=== PATIENT | female | born 1980 | race Caucasian/White ===

== ENCOUNTER 2019-08-16 12:38 | Inpatient (IN) | payer BC ==
[2019-08-16] MEDS ORDERED: Carboprost Tromethamine 250 MCG/1 ML Amp IM PRN (12:50)
[2019-08-16] MEDS ORDERED: Sodium Chloride 0.9% 10 ML Syringe FLUSH PRN (12:50)
[2019-08-16] MEDS ORDERED: Sodium Chloride 0.9% 2.5 ML Syringe FLUSH PRN (12:50)
[2019-08-16] MEDS ORDERED: Sodium Chloride 0.9% 10 ML SDV IV PRN (12:50)
[2019-08-16] MEDS ORDERED: Terbutaline 1 MG/ML SDV SUBCUT PRN (12:50)
[2019-08-16] MEDS ORDERED: Lidocaine 1% 50 ML MDV INJECT PRN (12:50)
[2019-08-16] MEDS ORDERED: Methylergonovine 0.2 MG/1 ML Amp IM PRN (12:50)
[2019-08-16] MEDS ORDERED: Water For Irrigation,Sterile 1,000 ML Container IRR PRN (12:50)
[2019-08-16] MEDS ORDERED: Tranexamic Acid 1,000 MG in Sodium Chloride 0.9% 100 ML IV PRN (12:50)
[2019-08-16] MEDS ORDERED: Misoprostol 200 MCG Tab PO PRN (12:50)
[2019-08-16] MEDS ORDERED: Butorphanol 1 MG/ML SDV IVPUSH PRN (12:50)
[2019-08-16] MEDS ORDERED: Oxytocin/0.9 % Sodium Chloride 30 UNIT/500 ML BAG IV SCH ×2 (13:00)
[2019-08-16] MEDS ORDERED: Lactated Ringers 1,000 ML IV SCH (13:00)
[2019-08-16] MEDS ORDERED: Citric Acid/Sodium Citrate Solution 30 ML Cup ONE (18:40)
--- NOTE | 2019-08-16 19:08 | PCM.OPNOTE ---
- General Post-Op/Procedure Note Date of Surgery/Procedure: 08/16/19 Operative Procedure(s): /IP Findings: Viable female APGARs 8, 9 weight pending. Spontaneous delivery intact placenta with 3V cord. Pre Op Diagnosis: 38/3 week IUP. Gestational HTN. Gestational diabetes Post-Op Diagnosis: Same Primary Surgeon: Roslyn Ford EBL in mLs: 300 Complications: none known Condition: Good Free Text/Narrative:: Dictation [id number]
[2019-08-16] MEDS ORDERED: Acetaminophen 500 MG Tab PO PRN (19:09)
[2019-08-16] MEDS ORDERED: Benzocaine/Menthol 20%-0.5% Spray 78 GM Cannister TOP PRN (19:09)
[2019-08-16] MEDS ORDERED: Witch Hazel Medicated Pads 40/Jar TOP PRN (19:09)
[2019-08-16] MEDS ORDERED: Bisacodyl 10 MG Supp RECTAL PRN (19:09)
[2019-08-16] MEDS ORDERED: Lanolin 100% Cream 7 GM Tube TOP PRN (19:09)
[2019-08-16] MEDS ORDERED: Ondansetron 4 MG/2 ML SDV IVPUSH PRN (19:09)
[2019-08-16] MEDS ORDERED: Ibuprofen 400 MG Tab PO PRN (19:09)
[2019-08-16] MEDS ORDERED: Aluminum Hydroxide/Magnesium Hydroxide/Simethicone Susp 30 ML Cup PO PRN (19:09)
[2019-08-16] MEDS ORDERED: oxyCODONE 5 MG Tab PO PRN (19:09)
--- NOTE | 2019-08-16 19:51 | OR ---
SURGEON: Roslyn Ford M.D. DATE OF PROCEDURE: 08/16/2019 PREOPERATIVE DIAGNOSES: 1. A 38-3/7 weeks' intrauterine . 2. Gestational hypertension. 3. Gestational diabetes. POSTOPERATIVE DIAGNOSES: 1. A 38-3/7 weeks' intrauterine . 2. Gestational hypertension. 3. Gestational diabetes. PROCEDURE: Spontaneous vaginal delivery, intact perineum. PRIMARY SURGEON: Roslyn Ford MD ANESTHESIA: None. ESTIMATED BLOOD LOSS: 300 mL. COMPLICATIONS: None known. FINDINGS: Viable female. score of 8 at one minute, 9 at five minutes. Weight is pending. Spontaneous delivery, intact placenta, 3-vessel cord. DISPOSITION: to nursery, mom in LDRP. PROCEDURE DETAILS: The patient is a 38-year-old, G5, P 2-0-2-2, at 38-3/7 weeks' gestation who presented today for her routine OB visit, was noted to have elevated blood pressures from 140s over 90s to 120s over 90s. Given term gestation with gestational diabetes and now elevated blood pressures, it was felt best to proceed with induction. Cervix was stable at 3 to 4 cm, 70% effaced, minus 2 station. The patient admitted, routine labs were drawn. No protein in the urine. Blood pressures remained in the 130s over 80s, 130s over 90s. Therefore, was initiated on Pitocin. She is group B beta strep negative. She started becoming more uncomfortable, underwent amniotomy shortly before 5 p.m., clear fluid was returned. The patient began having more intense contractions thereafter. Shortly after 6 p.m., she was found to be 7 cm. heart tones were in the 120s with variability. Within the next 15 to 20 minutes, she progressed to 9 cm. I presented for delivery. Upon my arrival, the patient was found to be anterior lip, was prepped and draped in the usual aseptic manner. With the next contraction, I was able to reduce anterior lip. The patient with continued pushing efforts was able to deliver head to a +4 station. Delivered head followed by anterior shoulder, posterior shoulder, and remainder of the body without difficulty. The 's oropharynx and nares were bulb suctioned. The infant was handed off to her mother with the attending nursing staff at the side. After a delay, cord was clamped x2 and cut. Cord arterial, cord venous, cord blood sampling was obtained. Light pressure was applied while the placenta was delivered spontaneously intact. Vigorous fundal uterine massage was then applied while 30 units of Pitocin was delivered in 500 mL of IV fluid. Upon inspection of cervix, vaginal sidewalls, and perineum, these were found to be intact. The patient tolerated the procedure well. Sponge count and instrument count were correct. The patient remained in LDRP. We will continue to monitor her blood pressures closely. Infant to nursery. EMIGDIO / BRITTANY /[id number]
[2019-08-16] MEDS: Ibuprofen 800 MG Tab PO PRN (20:08)
[2019-08-16] MEDS: Acetaminophen 500 MG Tab PO PRN ×2 (20:09→23:06)
[2019-08-17] MEDS: Ibuprofen 800 MG Tab PO PRN (04:18)
--- NOTE | 2019-08-17 09:50 | PCM.PNPP ---
- General Info Date of Service: 08/17/19 Functional Status: Reports: Pain Controlled, Tolerating Diet, Ambulating, Urinating - Review of Systems General: Denies: Fever, Weakness, Fatigue Pulmonary: Denies: Shortness of Breath Cardiovascular: Denies: Chest Pain, Palpitations, Lightheadedness Gastrointestinal: Denies: Abdominal Pain, Nausea, Vomiting Genitourinary: Denies: Flank Pain Musculoskeletal: Reports: No Symptoms Skin: Reports: No Symptoms Neurological: Reports: No Symptoms Psychiatric: Reports: No Symptoms - General Info Date of Service: 08/17/19 - Patient Data Vital Signs - Most Recent: Last Vital Signs Temp 36.4 C 08/17/19 08:00 Pulse 71 08/17/19 08:00 Resp 16 08/17/19 08:00 BP 141/81 H 08/17/19 08:00 Pulse Ox 94 L 08/17/19 08:00 Weight - Most Recent: 93.44 kg Lab Results - Last 24 Hours: Laboratory Results - last 24 hr 08/16/19 08/16/19 08/16/19 Range/Units 13:20 13:36 14:00 WBC 6.17 (4.0-11.0) K/uL RBC 4.37 (4.30-5.90) M/uL Hgb 12.6 (12.0-16.0) g/dL Hct 38.3 (36.0-46.0) % MCV 87.6 (80.0-98.0) fL MCH 28.8 (27.0-32.0) pg MCHC 32.9 (31.0-37.0) g/dL RDW Std Deviation 46.3 (28.0-62.0) fl RDW Coeff of Rinku 14 (11.0-15.0) % Plt Count 251 (150-400) K/uL MPV 10.50 (7.40-12.00) fL Nucleated RBC % 0.0 /100WBC Nucleated RBCs # 0 K/uL Cord ABG pH (7.18-7.38) Cord ABG Base Excess (-10--2) Cord VBG pH (7.25-7.45) Cord VBG Base Excess (-10--2) POC Glucose 57 L (60-110) mg/dL Fasting Glucose (74-106) mg/dL Blood Type A POSITIVE Antibody Screen NEGATIVE 08/16/19 08/16/19 08/17/19 Range/Units 16:29 18:44 05:32 WBC (4.0-11.0) K/uL RBC (4.30-5.90) M/uL Hgb 11.1 L (12.0-16.0) g/dL Hct 33.7 L (36.0-46.0) % MCV (80.0-98.0) fL MCH (27.0-32.0) pg MCHC (31.0-37.0) g/dL RDW Std Deviation (28.0-62.0) fl RDW Coeff of Rinku (11.0-15.0) % Plt Count (150-400) K/uL MPV (7.40-12.00) fL Nucleated RBC % /100WBC Nucleated RBCs # K/uL Cord ABG pH 7.139 L (7.18-7.38) Cord ABG Base Excess -11 L (-10--2) Cord VBG pH 7.235 L (7.25-7.45) Cord VBG Base Excess -10 (-10--2) POC Glucose 98 (60-110) mg/dL Fasting Glucose (74-106) mg/dL Blood Type Antibody Screen 08/17/19 Range/Units 05:32 WBC (4.0-11.0) K/uL RBC (4.30-5.90) M/uL Hgb (12.0-16.0) g/dL Hct (36.0-46.0) % MCV (80.0-98.0) fL MCH (27.0-32.0) pg MCHC (31.0-37.0) g/dL RDW Std Deviation (28.0-62.0) fl RDW Coeff of Rinku (11.0-15.0) % Plt Count (150-400) K/uL MPV (7.40-12.00) fL Nucleated RBC % /100WBC Nucleated RBCs # K/uL Cord ABG pH (7.18-7.38) Cord ABG Base Excess (-10--2) Cord VBG pH (7.25-7.45) Cord VBG Base Excess (-10--2) POC Glucose (60-110) mg/dL Fasting Glucose 95 (74-106) mg/dL Blood Type Antibody Screen Med Orders - Current: Current Medications Acetaminophen (Tylenol Extra Strength) 500 mg PO Q4H PRN PRN Reason: Pain Acetaminophen (Tylenol Extra Strength) 1,000 mg PO Q4H PRN PRN Reason: Pain Last Admin: 08/16/19 23:06 Dose: 1,000 mg Al Hydroxide/Mg Hydroxide (Mag-Al Plus) 30 ml PO Q8H PRN PRN Reason: Heartburn Benzocaine/Menthol (Dermoplast Pain Relief 20%-0.5% [place]) 78 gm TOP ASDIRECTED PRN PRN Reason: Perineal Comfort Measure Bisacodyl (Dulcolax) 10 mg RECTAL ONETIME PRN PRN Reason: Constipation Carboprost Tromethamine (Hemabate Ds) 250 mcg IM ASDIRECTED PRN PRN Reason: Post Hemorrhage Docusate Sodium (Colace) 100 mg PO BID PRN PRN Reason: Constipation Emollient Ointment (Lansinoh Hpa) 0 gm TOP ASDIRECTED PRN PRN Reason: Sore Nipples Lactated Ringer's (Ringers, Lactated) 1,000 mls @ 150 mls/hr IV ASDIRECTED BERNABE Last Admin: 08/16/19 14:01 Dose: 150 mls/hr Oxytocin/Sodium Chloride (Oxytocin 30 Unit/500 Ml-Ns) 30 unit in 500 mls @ 999 mls/hr IV TITRATE BERNABE Oxytocin/Sodium Chloride (Oxytocin 30 Unit/500 Ml-Ns) 30 unit in 500 mls @ 2 mls/hr IV TITRATE BERNABE; Protocol Last Titration: 08/16/19 17:00 Dose: 14 munits/min, 14 mls/hr Tranexamic Acid 1,000 mg/ (Sodium Chloride) 110 mls @ 660 mls/hr IV ONETIME PRN PRN Reason: Bleeding Ibuprofen (Motrin) 400 mg PO Q4H PRN PRN Reason: Pain Ibuprofen (Motrin) 800 mg PO Q6H PRN PRN Reason: Pain Last Admin: 08/17/19 04:18 Dose: 800 mg Methylergonovine Maleate (Methergine) 0.2 mg IM ASDIRECTED PRN PRN Reason: Post Hemorrhage Misoprostol (Cytotec) 200 mcg PO ONETIME PRN PRN Reason: Post Hemorrhage Ondansetron HCl (Zofran) 4 mg IVPUSH Q6H PRN PRN Reason: Nausea/Vomiting Oxycodone HCl (Oxycodone) 5 mg PO Q2H PRN PRN Reason: Pain Sodium Chloride (Saline Flush) 10 ml FLUSH ASDIRECTED PRN PRN Reason: Keep Vein Open Sodium Chloride (Saline Flush) 2.5 ml FLUSH ASDIRECTED PRN PRN Reason: Keep Vein Open Sodium Chloride (Normal Saline) 10 ml IV ASDIRECTED PRN PRN Reason: IV Use Sterile Water (Sterile Water For Irrigation) 1,000 ml IRR ASDIRECTED PRN PRN Reason: delivery Last Admin: 08/16/19 19:05 Dose: 1,000 ml Witch Julita (Tucks) 1 pad TOP ASDIRECTED PRN PRN Reason: comfort care Discontinued Medications Butorphanol Tartrate (Stadol) 1 mg IVPUSH Q1H PRN PRN Reason: Pain Citric Acid/Sodium Citrate (Bicitra Solution) Confirm Administered Dose 30 ml .ROUTE .[employer] ONE Stop: 08/16/19 18:41 Last Admin: 08/17/19 09:27 Dose: Not Given Lidocaine HCl (Xylocaine 1%) 50 ml INJECT ONETIME PRN PRN Reason: Laceration repair Terbutaline Sulfate (Brethine) 0.25 mg SUBCUT ASDIRECTED PRN PRN Reason: Tacysystole - Infant Interaction Support Person: - Recovery Exam Fundal Tone: Firm Fundal Level: 1 Fingerbreadths Below Umbilicus Fundal Placement: Midline Lochia Amount: Scant Lochia Color: Rubra/Red Perineum Description: Intact, Minimal Bruising/Swelling Episiotomy/Laceration: None Bladder Status: Voiding - Exam General: Alert, Oriented Lungs: Normal Respiratory Effort Cardiovascular: Regular Rate, Regular Rhythm GI/Abdominal Exam: Normal Bowel Sounds, Soft Extremities: Pedal Edema (trace). No: Jd's Sign Skin: Warm, Dry, Intact Neurological: No New Focal Deficit Psy/Mental Status: Alert, Normal Affect, Normal Mood - Problem List & Annotations (1) Vaginal delivery SNOMED Code(s): 335297987 Code(s): O80 - ENCOUNTER FOR FULL-TERM UNCOMPLICATED DELIVERY Status: Acute Current Visit: Yes (2) Gestational hypertension SNOMED Code(s): 655694578 Code(s): O13.9 - GESTATIONAL HTN W/O SIGNIFICANT PROTEINURIA, UNSP TRIMESTER Status: Acute Current Visit: Yes - Problem List Review Problem List Initiated/Reviewed/Updated: Yes - My Orders Last 24 Hours: My Active Orders 08/16/19 12:50 Patient Status [ADT] Routine Communication Order [RC] ASDIRECTED Communication Order [RC] ASDIRECTED May Shower [RC] ASDIRECTED Notify Provider [RC] PRN Notify Provider [RC] PRN Notify Provider [RC] STAT Oxygen Therapy [RC] ASDIRECTED Up ad Fabi [RC] ASDIRECTED Vital Signs [RC] PER UNIT ROUTINE Carboprost Tromethamine [Hemabate DS] 250 mcg IM ASDIRECTED PRN Methylergonovine [Methergine] 0.2 mg IM ASDIRECTED PRN Sodium Chloride 0.9% [Normal Saline] 10 ml IV ASDIRECTED PRN Sodium Chloride 0.9% [Saline Flush] 10 ml FLUSH ASDIRECTED PRN Sodium Chloride 0.9% [Saline Flush] 2.5 ml FLUSH ASDIRECTED PRN Tranexamic Acid [Cyklokapron] 1,000 mg Sodium Chloride 0.9% [Normal Saline] 100 ml IV ONETIME Water For Irrigation,Sterile [Sterile Water for Irrigation] 1,000 ml IRR ASDIRECTED PRN miSOPROStoL [Cytotec] 200 mcg PO ONETIME PRN Peripheral IV Insertion Adult [OM.PC] Routine Resuscitation Status Routine 08/16/19 13:00 Lactated Ringers [Ringers, Lactated] 1,000 ml IV ASDIRECTED Oxytocin/0.9 % Sodium Chloride [Oxytocin 30 Unit/500 ML-NS] 30 unit in 500 ml IV TITRATE Oxytocin/0.9 % Sodium Chloride [Oxytocin 30 Unit/500 ML-NS] 30 unit in 500 ml IV TITRATE Medication Administration Instruction [OM.PC] Q3H 08/16/19 13:20 RPR (SYPHILIS SERO) W/ RFLX [REF] Routine 08/16/19 19:09 Patient Status [ADT] Routine May Shower [RC] ASDIRECTED Notify Provider Vital Signs [RC] ASDIRECTED Up ad Fabi [RC] ASDIRECTED Vital Signs [RC] PER UNIT ROUTINE Acetaminophen [Tylenol Extra Strength] 1,000 mg PO Q4H PRN Acetaminophen [Tylenol Extra Strength] 500 mg PO Q4H PRN Alum Hydrox/Mag Hydrox/Simeth [Mag-Al Plus] 30 ml PO Q8H PRN Benzocaine/Menthol [Dermoplast Pain Relief 20%-0.5% [place]] 78 gm TOP ASDIRECTED PRN Docusate Sodium [Colace] 100 mg PO BID PRN Ibuprofen [Motrin] 400 mg PO Q4H PRN Ibuprofen [Motrin] 800 mg PO Q6H PRN Lanolin [Lansinoh HPA] See Dose Instructions TOP ASDIRECTED PRN Ondansetron [Zofran] 4 mg IVPUSH Q6H PRN bisacodyL [Dulcolax] 10 mg RECTAL ONETIME PRN oxyCODONE 5 mg PO Q2H PRN witch Julita [Tucks] 1 pad TOP ASDIRECTED PRN Assess Lochia [WOMSER] Per Unit Routine Assess Uterine Involution [WOMSER] Per Unit Routine Peripheral IV Discontinue [OM.PC] Routine 08/16/19 19:10 Ice Therapy [OM.PC] Per Unit Routine Perineal Care [OM.PC] Per Unit Routine Sitz Bath [OM.PC] Per Unit Routine 08/16/19 Dinner Regular Diet [DIET] - Assessment Assessment:: PPD 1 status post /IP Gestational hypertension Gestational diabetes-diet controlled, normal fasting glucose - Plan Plan:: Patient is doing well overall--denies headaches or visual changes. However, blood pressures are still ranging 140-150/80-90s. Will monitor into this afternoon and if stay in this range, will start antihypertensive. Plan to monitor until tomorrow given elevated BPs. Advised her to have supervisor opening and picking a blood pressure cuff for home. Reassured fasting glucose, but will need 75 gm GTT at PP visit. Otherwise, continue PP cares. Patient voices understanding to plan of care.
[2019-08-17] MEDS: Acetaminophen 500 MG Tab PO PRN (11:50)
[2019-08-17] MEDS: Labetalol 100 MG Tab PO SCH ×2 (13:01→21:14)
[2019-08-17] MEDS: Docusate Sodium 100 MG Cap PO PRN (21:13)
[2019-08-18] MEDS: Ibuprofen 800 MG Tab PO PRN ×2 (00:25→07:58)
[2019-08-18] MEDS: Docusate Sodium 100 MG Cap PO PRN (07:58)
[2019-08-18] MEDS: Labetalol 100 MG Tab PO SCH (08:38)
--- NOTE | 2019-08-18 09:20 | PCM.PNPP ---
- General Info Date of Service: 08/18/19 Subjective Update: 38yo s/p with GHTN and GDMA PPD2 Ambulating , voiding and tolerating regular diet Functional Status: Reports: Pain Controlled, Tolerating Diet, Ambulating, Urinating - Review of Systems General: Reports: No Symptoms HEENT: Reports: No Symptoms Pulmonary: Reports: No Symptoms Cardiovascular: Reports: No Symptoms Gastrointestinal: Reports: No Symptoms Genitourinary: Reports: No Symptoms Musculoskeletal: Reports: No Symptoms Skin: Reports: No Symptoms Neurological: Reports: No Symptoms Psychiatric: Reports: No Symptoms - General Info Date of Service: 08/18/19 - Patient Data Vital Signs - Most Recent: Last Vital Signs Temp 36.4 C 08/18/19 07:54 Pulse 71 08/18/19 08:40 Resp 18 08/18/19 07:54 BP 128/83 08/18/19 08:40 Pulse Ox 95 08/18/19 07:54 Weight - Most Recent: 93.44 kg Med Orders - Current: Current Medications Acetaminophen (Tylenol Extra Strength) 500 mg PO Q4H PRN PRN Reason: Pain Acetaminophen (Tylenol Extra Strength) 1,000 mg PO Q4H PRN PRN Reason: Pain Last Admin: 08/17/19 11:50 Dose: 1,000 mg Al Hydroxide/Mg Hydroxide (Mag-Al Plus) 30 ml PO Q8H PRN PRN Reason: Heartburn Benzocaine/Menthol (Dermoplast Pain Relief 20%-0.5% [place]) 78 gm TOP ASDIRECTED PRN PRN Reason: Perineal Comfort Measure Bisacodyl (Dulcolax) 10 mg RECTAL ONETIME PRN PRN Reason: Constipation Carboprost Tromethamine (Hemabate Ds) 250 mcg IM ASDIRECTED PRN PRN Reason: Post Hemorrhage Docusate Sodium (Colace) 100 mg PO BID PRN PRN Reason: Constipation Last Admin: 08/18/19 07:58 Dose: 100 mg Emollient Ointment (Lansinoh Hpa) 0 gm TOP ASDIRECTED PRN PRN Reason: Sore Nipples Lactated Ringer's (Ringers, Lactated) 1,000 mls @ 150 mls/hr IV ASDIRECTED BERNABE Last Admin: 08/16/19 14:01 Dose: 150 mls/hr Oxytocin/Sodium Chloride (Oxytocin 30 Unit/500 Ml-Ns) 30 unit in 500 mls @ 999 mls/hr IV TITRATE BERNABE Oxytocin/Sodium Chloride (Oxytocin 30 Unit/500 Ml-Ns) 30 unit in 500 mls @ 2 mls/hr IV TITRATE BERNABE; Protocol Last Titration: 08/16/19 17:00 Dose: 14 munits/min, 14 mls/hr Tranexamic Acid 1,000 mg/ (Sodium Chloride) 110 mls @ 660 mls/hr IV ONETIME PRN PRN Reason: Bleeding Ibuprofen (Motrin) 400 mg PO Q4H PRN PRN Reason: Pain Ibuprofen (Motrin) 800 mg PO Q6H PRN PRN Reason: Pain Last Admin: 08/18/19 07:58 Dose: 800 mg Labetalol HCl (Normodyne) 100 mg PO BID BERNABE Last Admin: 08/18/19 08:38 Dose: 100 mg Methylergonovine Maleate (Methergine) 0.2 mg IM ASDIRECTED PRN PRN Reason: Post Hemorrhage Misoprostol (Cytotec) 200 mcg PO ONETIME PRN PRN Reason: Post Hemorrhage Ondansetron HCl (Zofran) 4 mg IVPUSH Q6H PRN PRN Reason: Nausea/Vomiting Oxycodone HCl (Oxycodone) 5 mg PO Q2H PRN PRN Reason: Pain Sodium Chloride (Saline Flush) 10 ml FLUSH ASDIRECTED PRN PRN Reason: Keep Vein Open Sodium Chloride (Saline Flush) 2.5 ml FLUSH ASDIRECTED PRN PRN Reason: Keep Vein Open Sodium Chloride (Normal Saline) 10 ml IV ASDIRECTED PRN PRN Reason: IV Use Sterile Water (Sterile Water For Irrigation) 1,000 ml IRR ASDIRECTED PRN PRN Reason: delivery Last Admin: 08/16/19 19:05 Dose: 1,000 ml Witch Julita (Tucks) 1 pad TOP ASDIRECTED PRN PRN Reason: comfort care Discontinued Medications Butorphanol Tartrate (Stadol) 1 mg IVPUSH Q1H PRN PRN Reason: Pain Citric Acid/Sodium Citrate (Bicitra Solution) Confirm Administered Dose 30 ml .ROUTE .STK-MED ONE Stop: 08/16/19 18:41 Last Admin: 08/17/19 09:27 Dose: Not Given Lidocaine HCl (Xylocaine 1%) 50 ml INJECT ONETIME PRN PRN Reason: Laceration repair Terbutaline Sulfate (Brethine) 0.25 mg SUBCUT ASDIRECTED PRN PRN Reason: Tacysystole - Infant Interaction Support Person: - Recovery Exam Fundal Tone: Firm Fundal Level: 1 Fingerbreadths Below Umbilicus Fundal Placement: Midline Lochia Amount: Scant Lochia Color: Rubra/Red Perineum Description: Intact, Minimal Bruising/Swelling Episiotomy/Laceration: None Bladder Status: Voiding - Exam General: Alert HEENT: Pupils Equal Neck: Supple Lungs: Clear to Auscultation Cardiovascular: Regular Rate, Regular Rhythm GI/Abdominal Exam: Normal Bowel Sounds Extremities: Normal Inspection Neurological: No New Focal Deficit Psy/Mental Status: Alert - Problem List & Annotations (1) Gestational hypertension SNOMED Code(s): 736290380 Code(s): O13.9 - GESTATIONAL HTN W/O SIGNIFICANT PROTEINURIA, UNSP TRIMESTER Status: Acute Current Visit: Yes (2) Vaginal delivery SNOMED Code(s): 667151812 Code(s): O80 - ENCOUNTER FOR FULL-TERM UNCOMPLICATED DELIVERY Status: Acute Current Visit: Yes - Problem List Review Problem List Initiated/Reviewed/Updated: Yes - Assessment Assessment:: PPD 2 status post Gestational hypertension on labetalol 100mg bid , BPs 110s - 140s/70s - 90s Gestational diabetes-diet controlled, normal fasting glucose - Plan Plan:: Patient is doing well overall--denies headaches or visual changes. BPs mostly normal range just had 1 elevated 140/90 but repeat was normal. . GDMA - will do 6week OGTT .
== END 2019-08-18 11:05 | disposition home or self-care (01) | DRG 560 ==
LOC: MW.OB 12:38 → OBSVTOIN 18:44 → MW.OB 21:30
PROVIDERS: ADMIT Obstetrics & Gynecology; ATTEND Obstetrics & Gynecology
PROC: 10E0XZZ Delivery of Products of Conception, External Approach (ICD-10-PCS; principal; 2019-08-16)
PROC: 10907ZC Drainage of Amniotic Fluid, Therapeutic from Products of Conception, Via Natural or Artificial Opening (ICD-10-PCS; 2019-08-16)
DX: O13.4 Gestational [pregnancy-induced] hypertension without significant proteinuria, complicating childbirth (principal); Z3A.38 38 weeks gestation of pregnancy; Z37.0 Single live birth; O24.420 Gestational diabetes mellitus in childbirth, diet controlled
CPT/HCPCS: 36415; 59025; 59409; 82803; 82947; 82962; 85014; 85018; 85027; 86592; 86850; 86900; 86901; A9270-GY; J2590; J7120

== ENCOUNTER 2021-06-04 05:28 | Inpatient (IN) | payer BC ==
[2021-06-04] MEDS ORDERED: Terbutaline 1 MG/ML SDV SUBCUT PRN (05:50)
[2021-06-04] MEDS ORDERED: Sodium Chloride 0.9% 2.5 ML Syringe FLUSH PRN (05:50)
[2021-06-04] MEDS ORDERED: Tranexamic Acid 1,000 MG in Sodium Chloride 0.9% 100 ML IV PRN (05:50)
[2021-06-04] MEDS ORDERED: Misoprostol 200 MCG Tab PO PRN (05:50)
[2021-06-04] MEDS ORDERED: Lidocaine 1% 50 ML MDV INJECT PRN (05:50)
[2021-06-04] MEDS ORDERED: Water For Irrigation,Sterile 1,000 ML Container IRR PRN (05:50)
[2021-06-04] MEDS ORDERED: Sodium Chloride 0.9% 20 ML SDV IV PRN (05:50)
[2021-06-04] MEDS ORDERED: Carboprost Tromethamine 250 MCG/1 ML Amp IM PRN (05:50)
[2021-06-04] MEDS ORDERED: Methylergonovine 0.2 MG/1 ML Amp IM PRN (05:50)
[2021-06-04] MEDS ORDERED: Sodium Chloride 0.9% 10 ML Syringe FLUSH PRN (05:50)
[2021-06-04] MEDS ORDERED: Butorphanol 1 MG/ML SDV IVPUSH PRN (05:50)
[2021-06-04] MEDS ORDERED: Lactated Ringers 1,000 ML IV SCH (06:00)
[2021-06-04] MEDS ORDERED: Oxytocin/0.9 % Sodium Chloride 30 UNIT/500 ML BAG IV SCH ×2 (06:00)
[2021-06-04] MEDS ORDERED: Witch Hazel Medicated Pads 40/Jar TOP PRN (10:09)
[2021-06-04] MEDS ORDERED: Lanolin 100% Cream 7 GM Tube TOP PRN (10:09)
[2021-06-04] MEDS ORDERED: Docusate Sodium 100 MG Cap PO PRN (10:09)
[2021-06-04] MEDS ORDERED: Ibuprofen 400 MG Tab PO PRN (10:09)
[2021-06-04] MEDS ORDERED: Acetaminophen 500 MG Tab PO PRN ×2 (10:09)
[2021-06-04] MEDS ORDERED: Bisacodyl 10 MG Supp RECTAL PRN (10:09)
[2021-06-04] MEDS ORDERED: Benzocaine/Menthol 20%-0.5% Spray 78 GM Cannister TOP PRN (10:09)
[2021-06-04] MEDS ORDERED: oxyCODONE 5 MG Tab PO PRN (10:09)
[2021-06-04] MEDS: Ibuprofen 800 MG Tab PO PRN ×2 (14:11→20:10)
[2021-06-05] MEDS: Ibuprofen 800 MG Tab PO PRN ×2 (02:26→08:31)
== END 2021-06-05 12:40 | disposition home or self-care (01) | DRG 560 ==
LOC: MW.ONC 05:28 → MW.OB 05:29 → MW.ONC 05:50 → MW.OB 05:50 → OBSVTOIN 22:09
PROVIDERS: ADMIT Obstetrics & Gynecology; ATTEND Obstetrics & Gynecology
PROC: 10E0XZZ Delivery of Products of Conception, External Approach (ICD-10-PCS; principal; 2021-06-04)
PROC: 10907ZC Drainage of Amniotic Fluid, Therapeutic from Products of Conception, Via Natural or Artificial Opening (ICD-10-PCS; 2021-06-04)
PROC: 3E033VJ Introduction of Other Hormone into Peripheral Vein, Percutaneous Approach (ICD-10-PCS; 2021-06-04)
PROC: 0HQ9XZZ Repair Perineum Skin, External Approach (ICD-10-PCS; 2021-06-04)
DX: O24.420 Gestational diabetes mellitus in childbirth, diet controlled (principal); Z37.0 Single live birth; O70.0 First degree perineal laceration during delivery; Z20.822 Contact with and (suspected) exposure to COVID-19; Z3A.39 39 weeks gestation of pregnancy
CPT/HCPCS: 36415; 59025; 59409; 82803; 82947; 85014; 85018; 85027; 86592; 86850; 86900; 86901; A9270-GY; J2001; J2590; J7120; U0002